=== PATIENT | female | born 1980 | race African-American/Black ===

== ENCOUNTER 2016-11-11 13:02 | Emergency (ER) | payer MEDICAID ==
[~2016-11-11] VITALS: Ht 172.7 cm; Wt 83.0 kg
[2016-11-11] MEDS ORDERED: KETOROLAC 30MG/ML VIAL IM ONE (14:15)
[2016-11-11 14:28] VITALS: BP 118/73
== END 2016-11-11 16:59 | disposition home or self-care (01) ==
LOC: ER 16:55
DX: S10.93XA Contusion of unspecified part of neck, initial encounter (principal); R51 Headache; S30.0XXA Contusion of lower back and pelvis, initial encounter; M25.519 Pain in unspecified shoulder; V49.59XA Passenger injured in collision with other motor vehicles in traffic accident, initial encounter; Y93.89 Activity, other specified; Y92.410 Unspecified street and highway as the place of occurrence of the external cause
CPT/HCPCS: 81025; 96372; 99283; J1885; Z7610